=== PATIENT | female | born 1995 | race Caucasian/White ===

== ENCOUNTER → 2017-03-27 | Outpatient (CLI) | payer OTHER ==
--- NOTE | 2017-03-27 23:49 | CONS ---
DATE OF SERVICE: 03/27/2017 PRIMARY CARE PHYSICIAN: Dr. Martino This patient is a 21-year-old girl with chronic anxiety and panic, maintained on Zoloft. The family has been concerned, knowing that the patient has been sleeping late, at around 1 a.m., and she is waking up 12:00 noontime next day. She snores loudly. No witnessed apneas. She is quite tired and sleepy during the day. Her Winchendon Score is 5. She is obese. No episodes of choking or gasping at nighttime. No nocturia. No grinding of the teeth. No sleepwalking. No nocturnal heartburn or palpitations. She has chronic anxiety with mild component of depression. She has no major problems in initiating sleep. She has good sleep maintenance. No substance abuse. No head trauma. No meningitis. She sleeps in various body positions without any preference. No sleep paralysis. No hallucinations. No cataplexy. PAST MEDICAL HISTORY: 1. Obesity. 2. Chronic anxiety and panic. PAST SURGICAL HISTORY: None. DRUG ALLERGIES: NONE KNOWN. MEDICATION: Zoloft 50 mg p.o. daily. SOCIAL HISTORY: Father may have potential obstructive sleep apnea, although he has not been diagnosed. REVIEW OF SYSTEMS: Twelve-point review of systems was done. Positive findings were all mentioned above in the history of present illness. No recent weight gain or weight loss. No sleepwalking. No nocturnal heartburn. No chest pain. No asthma. No other complaints otherwise. BP is 111/69, pulse 91, respiration 14, temperature 98.5, saturation 98% on room air. BMI 36.8. Neck size 16-1/2 inches. Winchendon Score is 5. Weight is 192.6. Height is 60-1/2 inches. GENERAL APPEARANCE: Calm, comfortable. No acute distress. HEENT: Mallampati class 4. No goiter or neck masses. Short neck. Crowding of the posterior pharynx is present. LUNGS: Clear to auscultation. Heart sounds are regular rate and rhythm. Normal S1, S2. No S3, S4. No murmurs. ABDOMEN: Soft and non-tender. No organomegaly. EXTREMITIES: No edema. No cyanosis or clubbing. IMPRESSION: 1. Chronic hypersomnia, currently under investigation. Could be related to poor sleep hygiene. Rule out underlying obstructive sleep apnea. 2. Delayed sleep phase syndrome. 3. Generalized anxiety/panic. 4. Obesity. PLAN: 1. Implement good sleep hygiene measures. 2. Regulate sleep/wake cycle. Would suggest going to bed earlier at around 10 p.m. and getting up at 7 a.m. in the morning. 3. Weight loss. 4. Proceed with a polysomnogram to rule out any obstructive sleep apnea. DELILAH
== END | disposition home or self-care (01) ==
LOC: SLEEP 15:15
PROVIDERS: ATTEND Internal Medicine Critical Care Medicine
DX: F41.1 Generalized anxiety disorder (principal); G47.10 Hypersomnia, unspecified; F41.0 Panic disorder [episodic paroxysmal anxiety]; E66.9 Obesity, unspecified
CPT/HCPCS: 99211

== ENCOUNTER → 2017-05-18 | Outpatient (CLI) | payer OTHER ==
[2017-05-18 11:01] LABS: Basophils % (A) 0 %; CH 30.3; CHCM 32.6; Eosinophils # (A) 0.2 k/uL (0-0.7); Eosinophils % (A) 2 %; HGB 13.7 gm/dL (11.4-16.0); Luc # (Auto) 0.18; Luc % (Auto) 2; Lymphocytes # (A) 2.4 k/uL (1.0-4.8); Lymphocytes % (A) 27 %; MCH 30.4 pg (25.0-35.0); MCHC 32.6 g/dL (31.0-37.0); MCV 93.3 fL (80.0-100.0); Mean Platelet Volume 7.4; Monocytes # (A) 0.6 k/uL (0-1.0); Monocytes % (A) 6 %; Neutrophils # (A) 5.4 k/uL (1.3-7.7); Neutrophils % (A) 62 %; RDW 12.4 % (11.5-15.5); WBC 8.8 k/uL (4.0-11.0); WBC (Perox) 9.13
[2017-05-18 11:59] LABS: ALT 47 U/L (9-52); AST 27 U/L (14-36); Alkaline Phosphatase 62 U/L (38-126); Anion Gap 11 mmol/L; Blood Urea Nitrogen 7 mg/dL (7-17); Calcium 9.7 mg/dL (8.4-10.2); Carbon Dioxide 26 mmol/L (22-30); Chloride 102 mmol/L (98-107); Cholesterol 183 mg/dL (<200); Glucose 92 mg/dL (74-99); HDL Cholesterol 59 mg/dL (40-60); Non-African American GFR(MDRD) >60 (>60 ml/min/1.73 sqM); Potassium 4.3 mmol/L (3.5-5.1); Sodium 139 mmol/L (137-145); Total Bilirubin 0.5 mg/dL (0.2-1.3); Total Protein 7.5 g/dL (6.3-8.2)
[2017-05-18 15:02] LABS: Hemoglobin A1C 5.2 %
[2017-05-18 16:15] LABS: Estradiol 222.8 pg/mL; Prolactin 13.7 ng/mL (2.8-29.2)
== END | disposition home or self-care (01) ==
LOC: LABWHC1 10:21
PROVIDERS: ATTEND Nurse Practitioner Pediatrics
DX: E66.9 Obesity, unspecified (principal); N91.2 Amenorrhea, unspecified
CPT/HCPCS: 36415; 80053; 80061; 82306; 82670; 83001; 83036; 84146; 84402; 84439; 84443; 84702; 85025